=== PATIENT | male | born 1995 | race Caucasian/White ===

== ENCOUNTER 2016-09-04 14:55 | Emergency (ER) | payer MEDICAID ==
[~2016-09-04] VITALS: Ht 177.8 cm; Wt 77.1 kg
[2016-09-05] MEDS ORDERED: CYCLOBENZAPRINE HCL 10 MG TAB PO ONE (03:45)
[2016-09-05] MEDS ORDERED: IBUPROFEN 600 MG TAB PO ONE (03:45)
[2016-09-05 04:12] LABS: Urine Bilirubin Negative (Negative); Urine Blood Negative /uL (Negative); Urine Color Yellow (Yellow); Urine Glucose Normal (Normal); Urine Ketone 1+ (Negative); Urine Mucus FEW (None Seen); Urine Nitrite Negative (Negative); Urine RBC 1 /hpf (0 - 3); Urine Squamous Epithelial Cell FEW /hpf (<5); Urine Urobilinogen Normal (Negative)
[2016-09-05 04:38] VITALS: BP 122/64
== END 2016-09-05 04:38 | disposition home or self-care (01) ==
LOC: EDBD 15:16 → EDSEX 15:16 → ER 15:16
DX: N43.3 Hydrocele, unspecified (principal)
CPT/HCPCS: 76870; 81001